=== PATIENT | male | born 1980 | race Caucasian/White ===

== ENCOUNTER 2023-04-22 13:04 | Outpatient (CLI) | payer BC | END 2023-04-22 23:59 | disposition home or self-care (01) | LOC: RAD 13:04 | PROVIDERS: ATTEND Nurse Practitioner Family | DX: S83.281A Other tear of lateral meniscus, current injury, right knee, initial encounter (principal); M25.561 Pain in right knee; X58.XXXA Exposure to other specified factors, initial encounter; Y93.89 Activity, other specified; Y92.89 Other specified places as the place of occurrence of the external cause; Y99.8 Other external cause status | CPT/HCPCS: 73721 ==